=== PATIENT | female | born 1985 | race Caucasian/White ===

== ENCOUNTER → 2018-04-19 | Outpatient (CLI) | payer OTHER ==
[~2018-04-19] MED LIST: BCPILLS PO; FERR1TAB23; MULT-506 PO; SPIR25TA PO
== END | disposition home or self-care (01) ==
LOC: C.PATHSPEC 17:11
PROVIDERS: ATTEND Plastic Surgery
DX: L72.9 Follicular cyst of the skin and subcutaneous tissue, unspecified (principal)